=== PATIENT | female | born 1980 | race Caucasian/White ===

== ENCOUNTER 2018-05-30 16:04 | Emergency (ER) | payer OTHER ==
[~2018-05-30] VITALS: Ht 154.9 cm; Wt 101.2 kg
[~2018-05-30 16:04] MED LIST: MOT600 PO
[2018-05-30 16:41] VITALS: BP 141/82; Ht 154.9 cm; Wt 101.2 kg
== END 2018-05-30 18:58 | disposition home or self-care (01) ==
LOC: ED 16:04
DX: J03.90 Acute tonsillitis, unspecified (principal)